=== PATIENT | female | born 1990 | race American Indian/Alaskan Native ===

== ENCOUNTER 2017-11-05 05:16 | Emergency (ER) | payer SELFPAY ==
[2017-11-05 05:43] VITALS: BP 104/56
[2017-11-05] MEDS ORDERED: PEPCID PO ONE (06:32)
[2017-11-05] MEDS ORDERED: BENADRYL IV ONE (06:32)
[2017-11-05] MEDS ORDERED: DECADRON IM ONE (06:32)
--- NOTE | 2017-11-05 09:25 | Emergency Department Report ---
- General Chief complaint: Skin/Abscess/Foreign Body Stated complaint: ALLERGIC REACTION Time Seen by Provider: 11/05/17 09:21 Source: patient Mode of arrival: Ambulatory Limitations: No Limitations - History of Present Illness Initial comments: Patient reports generalized skin rash with itching that started two days ago after using scented lotion. She also reports an Eczema flare-up MD complaint: rash Onset/Timin -: days(s) Tetanus Up to Date: yes Location: generalized Severity: severe Severity scale (0 -10): 9 Quality: other (itching) Consistency: constant Improves with: none Worsens with: none Context: other (scented lotion) Associated symptoms: itching Treatments Prior to Arrival: Benadryl - Related Data Previous Rx's Medication Instructions Recorded Last Taken Type Ibuprofen 600 mg PO TID #30 tablet 11/05/17 Unknown Rx Permethrin [Elimite] 60 gm TP ONCE #1 cream..g. 11/05/17 Unknown Rx Triamcinolone 0.1% [Kenalog 0.1% 1 applic TP TID #1 tube 11/05/17 Unknown Rx CREAM] diphenhydrAMINE [Benadryl CAP] 25 mg PO Q6HR PRN #20 capsule 11/05/17 Unknown Rx methylPREDNISolone [Medrol] 4 mg PO DAILY #1 tab.ds.pk 11/05/17 Unknown Rx Allergies Allergy/AdvReac Type Severity Reaction Status Date / Time No Known Allergies Allergy Unverified 11/05/17 05:42 Abscess Boil HPI - HPI Chief Complaint: Skin/Abscess/Foreign Body Stated Complaint: ALLERGIC REACTION Home Medications: Previous Rx's Medication Instructions Recorded Last Taken Type Ibuprofen 600 mg PO TID #30 tablet 11/05/17 Unknown Rx Permethrin [Elimite] 60 gm TP ONCE #1 cream..g. 11/05/17 Unknown Rx Triamcinolone 0.1% [Kenalog 0.1% 1 applic TP TID #1 tube 11/05/17 Unknown Rx CREAM] diphenhydrAMINE [Benadryl CAP] 25 mg PO Q6HR PRN #20 capsule 11/05/17 Unknown Rx methylPREDNISolone [Medrol] 4 mg PO DAILY #1 tab.ds.pk 11/05/17 Unknown Rx Allergies/Adverse Reactions: Allergies Allergy/AdvReac Type Severity Reaction Status Date / Time No Known Allergies Allergy Unverified 11/05/17 05:42 ED Review of Systems ROS: Stated complaint: ALLERGIC REACTION Other details as noted in HPI Constitutional: denies: chills, fever Eyes: denies: eye pain, eye discharge, vision change ENT: denies: ear pain, throat pain Respiratory: denies: cough, shortness of breath, wheezing Cardiovascular: denies: chest pain, palpitations Endocrine: no symptoms reported Gastrointestinal: denies: abdominal pain, nausea, diarrhea Musculoskeletal: denies: back pain, joint swelling, arthralgia Skin: rash (generalized), pruritus Neurological: denies: headache, weakness, paresthesias Hematological/Lymphatic: denies: easy bleeding, easy bruising ED Past Medical Hx - Past Medical History Previous Medical History?: Yes Additional medical history: Eczema - Surgical History Past Surgical History?: No - Social History Smoking Status: Current Every Day Smoker Substance Use Type: Alcohol - Medications Home Medications: Home Medications Medication Instructions Recorded Confirmed Last Taken Type Ibuprofen 600 mg PO TID #30 tablet 11/05/17 Unknown Rx Permethrin [Elimite] 60 gm TP ONCE #1 cream..g. 11/05/17 Unknown Rx Triamcinolone 0.1% [Kenalog 0.1% 1 applic TP TID #1 tube 11/05/17 Unknown Rx CREAM] diphenhydrAMINE [Benadryl CAP] 25 mg PO Q6HR PRN #20 capsule 11/05/17 Unknown Rx methylPREDNISolone [Medrol] 4 mg PO DAILY #1 tab.ds.pk 11/05/17 Unknown Rx ED Physical Exam - General Limitations: No Limitations General appearance: alert, in no apparent distress - Head Head exam: Present: atraumatic, normocephalic - ENT ENT exam: Present: mucous membranes moist - Neck Neck exam: Present: tenderness, full ROM, other (maculopapular eczematous appearing rash neck and bilateral elbows). Absent: meningismus, lymphadenopathy , thyromegaly - Respiratory Respiratory exam: Present: normal lung sounds bilaterally. Absent: respiratory distress, wheezes, rales, rhonchi, stridor, chest wall tenderness, accessory muscle use, decreased breath sounds, prolonged expiratory - Cardiovascular Cardiovascular Exam: Present: regular rate, normal rhythm. Absent: systolic murmur, diastolic murmur, rubs, gallop - Extremities Exam Extremities exam: Present: normal inspection, full ROM, normal capillary refill - Back Exam Back exam: Present: normal inspection - Neurological Exam Neurological exam: Present: alert, oriented X3, CN II-XII intact, normal gait, reflexes normal - Psychiatric Psychiatric exam: Present: normal affect, normal mood - Skin Skin exam: Present: warm, dry (and scaly noted to neck and elbows), urticaria, other (generalized maculopapular lesions with burrows chest, back, hands and abdominal) ED Course Vital Signs 11/05/17 05:19 Temperature 98.5 F Pulse Rate 87 Respiratory 14 Rate Blood Pressure 104/56 O2 Sat by Pulse 97 Oximetry ED Medical Decision Making - Lab Data Vital Signs 11/05/17 05:19 Temperature 98.5 F Pulse Rate 87 Respiratory 14 Rate Blood Pressure 104/56 O2 Sat by Pulse 97 Oximetry - Medical Decision Making During the course of ED, Benadryl, Pepcid and Decadron were given in triage. Patient reports minimal relief from symptoms after administration of medication. She was sent home with prescriptions for Triamcinolone, Medrol dose pack, Benadryl, Ibuprofen and Elimite, instructed to follow up with the selective referral given at discharge, she verbalized understanding - Differential Diagnosis Scabies, Ezcema, Contact Dermatitis Critical care attestation.: If time is entered above; I have spent that time in minutes in the direct care of this critically ill patient, excluding procedure time. ED Disposition Clinical Impression: Scabies Eczema Qualifiers: Eczema type: flexural Qualified Code(s): L20.82 - Flexural eczema Disposition: DC- TO HOME OR SELFCARE Is pt being admited?: No Condition: Stable Instructions: Eczema (ED), Scabies (ED) Additional Instructions: Take medication as directed. Follow up with the selective referral given at discharge Prescriptions: diphenhydrAMINE [Benadryl CAP] 25 mg PO Q6HR PRN #20 capsule PRN Reason: Itching Ibuprofen 600 mg PO TID #30 tablet methylPREDNISolone [Medrol] 4 mg PO DAILY #1 tab.ds.pk Permethrin [Elimite] 60 gm TP ONCE #1 cream..g. Triamcinolone 0.1% [Kenalog 0.1% CREAM] 1 applic TP TID #1 tube Referrals: PRIMARY CARE, [Primary Care Provider] - 3-5 Days Forms: Work/School Release Form(ED) Time of Disposition: 09:25
== END 2017-11-05 10:05 | disposition home or self-care (01) ==
LOC: ED 05:16
DX: B86 Scabies (principal); L30.9 Dermatitis, unspecified; F17.200 Nicotine dependence, unspecified, uncomplicated
CPT/HCPCS: 96372; 96374; 99282; J1100; J1200